=== PATIENT | female | born 1960 ===

== ENCOUNTER 2017-09-13 12:08 | Inpatient (IN) | payer SELFPAY ==
[2017-09-13 12:30] LABS: #Basophils 0.1 thou/uL (0.0-0.2); #Eosinphils 0.2 thou/uL (0.0-0.7); #Lymphocytes 3.2 thou/uL (1.20-3.40); #Monocytes 0.5 thou/uL (0.11-0.59); #Neutrophils 4.1 thou/uL (1.40-6.50); %Basophils 0.8 % (0.0-1.0); %Eosinophils 1.9 % (0.0-10.0); %Lymphocytes 39.5 % (21.0-51.0); %Monocytes 6.2 % (0.0-10.0); Hematocrit 37.8 % (36.0-47.0); Mean Platelet Volume 6.9 fL (7.4-10.4); Red Blood Cell (RBC) Count 4.24 mill/uL (4.20-5.40)
[2017-09-13 12:32] LABS: Prothrombin Time 12.4 SEC (12.0-14.7)
[2017-09-13] MEDS ORDERED: Adacel (T-DAP) 0.5 ML VIAL ONE (12:36)
[2017-09-13] MEDS ORDERED: Ondansetron HCl/PF 4 MG/2 ML Vial ONE (12:36)
[2017-09-13 12:42] LABS: ALT (SGPT) 19 U/L (8-55); AST (SGOT) 34 U/L (5-34); Alkaline Phosphatase 79 U/L (40-150); Anion Gap 14 mmol/L (10-20); BUN (Urea Nitrogen) 18 mg/dL (9.8-20.1); Bilirubin, Total 0.3 mg/dL (0.2-1.2); Calc. Creatinine Clearance 0 mL/min (70-130); Calcium 9.5 mg/dL (7.8-10.44); Carbon Dioxide 24 mmol/L (22-29); Chloride 105 mmol/L (98-107); Estimated GFR-MDRD 78; Globulin 2.9 g/dL (2.4-3.5); Protein, Total 6.9 g/dL (6.0-8.3)
[2017-09-13] MEDS ORDERED: Meclizine HCl 25 MG TAB ONE (12:43)
[2017-09-13] MEDS ORDERED: Lidocaine 1% w/Epinephrine 1:200K 30 ML VIAL ONE (12:43)
[2017-09-13] MEDS ORDERED: Bacitracin Zinc 1 Packet ONE (13:31)
--- NOTE | 2017-09-13 13:52 | CT ---
HEAD CT NONCONTRAST: Date: 09/13/17 INDICATION: Post-traumatic head injury. FINDINGS: There is abnormal extra-axial hyperdensity which conforms to the subarachnoid space, as well as a sub dural compartment. This overlies each frontal lobe anteriorly and inferiorly, as well as interposed a long the anterior aspect of the interhemispheric falx. There is also abnormal sulcal hyperdensity of the right middle cranial fossa overlying the lateral aspect of the mid right temporal lobe. There is no pneumocephalus or depressed calvarial fracture. There is scalp injury notably at the occiput. IMPRESSION: Evidence of acute intracranial hemorrhage, both subarachnoid and subdural in location, bilaterally. Telephone call placed to patient's ER physician, Get Bello, at the time of dictation, 1224 hour s on 09/13/17. CODE CR. POS: [facility]
--- NOTE | 2017-09-13 13:54 | CT ---
CERVICAL SPINE CT: Date: 09/13/17 INDICATION; Post-traumatic neck pain. FINDINGS: The craniocervical junction is intact. There is no evidence of fracture or subluxation within the cer vical spine. Straightening of normal cervical curvature may be positional in etiology. Correlate clin ically. Degenerative cyst formation seen within facet joints of the cervical spine and at the cervico thoracic junction. IMPRESSION: No acute fracture of the cervical spine identified. POS: [facility]
--- NOTE | 2017-09-13 14:17 | CT ---
FACIAL BONES CT NONCONTRAST: Date: 09/13/17 INDICATION: Occipital laceration, fall, pain related to injury. FINDINGS: Orbital dejesus are intact. There is no retrobulbar hematoma or mass effect. No acute fluid level of th e imaged paranasal sinuses. No otomastoid effusion is seen. Temporomandibular joints maintain appropr iate alignment. Zygomatic arches are intact. No fracture of the pterygoid plates. There is a subtle d epression of the posterior aspect of the left nasal bone. IMPRESSION: Subtle deformity of the left nasal bone. This may related to a recent fracture if there is acute pain . Recommend correlation with physical exam. POS: [facility]
[2017-09-13] MEDS ORDERED: Promethazine HCl 25 MG/ML VIAL IM PRN (14:36)
[2017-09-13] MEDS ORDERED: Ondansetron HCl/PF 4 MG/2 ML Vial IVP PRN (14:36)
[2017-09-13] MEDS ORDERED: traMADol HCl 50 MG TAB PO PRN ×2 (14:36)
[2017-09-13] MEDS ORDERED: Dextrose 5% in Water 1,000 ML IV PRN (14:36)
[2017-09-13] MEDS ORDERED: Dextrose 50% Abboject 50 ML SYRINGE SLOW IVP PRN ×2 (14:36)
[2017-09-13] MEDS ORDERED: hydrALAZINE 20 MG/ML VIAL SLOW IVP PRN (14:36)
[2017-09-13] MEDS ORDERED: Ondansetron ODT 4 MG TAB PO PRN (14:36)
[2017-09-13] MEDS ORDERED: Scopolamine 1.5 mg/72 hour Patch TD SCH (14:36)
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
--- NOTE | 2017-09-13 14:41 | RAD ---
FRONTAL VIEW CHEST: Date: 09/13/17 INDICATION: Post-traumatic pain. FINDINGS: Lungs are clear. No effusion or pneumothorax seen. Cardiomediastinal silhouette is within normal limi ts of size for supine portable technique. IMPRESSION: No focal consolidation. POS: [facility]
[2017-09-13 16:18] VITALS: BMI 23.9
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
[2017-09-13] MEDS: Acetaminophen 500 MG TAB PO SCH ×2 (17:24→19:59)
[2017-09-13] MEDS: Famotidine 20 MG TAB PO SCH (20:00)
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
[2017-09-14] MEDS: Acetaminophen 500 MG TAB PO SCH ×2 (03:07→08:59)
[2017-09-14 04:53] LABS: #Eosinphils 0.1 thou/uL (0.0-0.7); #Lymphocytes 1.7 thou/uL (1.20-3.40); #Monocytes 0.8 thou/uL (0.11-0.59); #Neutrophils 6.5 thou/uL (1.40-6.50); %Basophils 0.5 % (0.0-1.0); %Lymphocytes 18.7 % (21.0-51.0); %Monocytes 8.7 % (0.0-10.0); Hematocrit 36.2 % (36.0-47.0); Mean Platelet Volume 7.1 fL (7.4-10.4); Red Blood Cell (RBC) Count 4.05 mill/uL (4.20-5.40); White Blood Cell (WBC) Count 9.2 thou/uL (4.8-10.8)
[2017-09-14 04:56] LABS: Anion Gap 12 mmol/L (10-20); BUN (Urea Nitrogen) 17 mg/dL (9.8-20.1); Calc. Creatinine Clearance 58 mL/min (70-130); Calcium 9.4 mg/dL (7.8-10.44); Carbon Dioxide 26 mmol/L (22-29); Chloride 103 mmol/L (98-107); Estimated GFR-MDRD 74
[2017-09-14 07:57] VITALS: BP 120/89; TEMP 98.5
[2017-09-14] MEDS: Famotidine 20 MG TAB PO SCH (09:00)
--- NOTE | 2017-09-14 10:30 | CT ---
CT HEAD NONCONTRAST: Date: 09/14/17 COMPARISON: 09/13/17. CLINICAL HISTORY: Head injury with intracranial hemorrhage, follow-up. FINDINGS: There has been interval decrease of mild extra-axial hemorrhage overlying the bifrontal sulci, as wel l as along the anterior aspect of the interhemispheric falx with minimal residua remaining. There is a tiny extra-axial hemorrhagic component overlying the left parietal convexity approximately 2.0 mm i n thickness. Skin otf are present at the posterior scalp. No new mass effect, midline shift, or v entriculomegaly. IMPRESSION: Minimal residual scattered intracranial hemorrhage without associated mass effect or midline shift. POS: [facility]
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
== END 2017-09-14 11:45 | disposition home or self-care (01) | DRG 84 ==
LOC: ERS 12:08 → EDBD 12:08 → ERHOLD 13:45 → 2SE 16:04
PROVIDERS: ADMIT Surgery; ATTEND Surgery
DX: S06.6X9A Traumatic subarachnoid hemorrhage with loss of consciousness of unspecified duration, initial encounter (principal); F07.81 Postconcussional syndrome; F17.210 Nicotine dependence, cigarettes, uncomplicated; S01.01XA Laceration without foreign body of scalp, initial encounter; S06.5X9A Traumatic subdural hemorrhage with loss of consciousness of unspecified duration, initial encounter; R40.2413 Glasgow coma scale score 13-15, at hospital admission; V19.9XXA Pedal cyclist (driver) (passenger) injured in unspecified traffic accident, initial encounter
CPT/HCPCS: 12002; 36415; 70450; 70486; 71010; 72125; 72170; 80048; 80053; 80307; 84703; 85025; 85610; 85730; 90471; 90715; 93005; 96374; G0390; J2405